=== PATIENT | female | born 1995 | race Caucasian/White ===

== ENCOUNTER 2023-05-20 19:05 | Emergency (ER) | payer OTHER, SELFPAY ==
[2023-05-20 19:14] VITALS: BP 100/64
[2023-05-20] MEDS: TYLENOL 650 MG PO (20:23)
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
== END 2023-05-20 21:33 ==
LOC: EMR 19:05
PROVIDERS: EMERGENCY PHYSICIAN Emergency Medicine
DX: S00.81XA Abrasion of other part of head, initial encounter (principal); Y09 Assault by unspecified means
CPT/HCPCS: 99284; 70450